=== PATIENT | male | born 1990 | race Native Hawaiian/Other Pacific Islander ===

== ENCOUNTER 2017-01-12 14:24 | Outpatient (CLI) | payer OTHER | END 2017-01-12 14:35 | disposition short-term general hospital (02) | LOC: AMB 14:24 | DX: S43.085A Other dislocation of left shoulder joint, initial encounter (principal) | CPT/HCPCS: A0425; A0429 ==

== ENCOUNTER 2018-01-02 12:52 | Emergency (ER) | payer OTHER ==
[~2018-01-02] VITALS: Ht 170.2 cm; Wt 65.8 kg
[2018-01-02 13:44] LABS: PLATELET COUNT 328 K/uL (142-355)
[2018-01-02 13:49] LABS: POTASSIUM 4.5 mmol/L (3.6-5.2)
[2018-01-02 15:00] VITALS: BP 102/61; TEMP 98
== END 2018-01-02 15:00 | disposition home or self-care (01) ==
LOC: ED 12:52
PROVIDERS: Family Medicine
DX: F19.20 Other psychoactive substance dependence, uncomplicated (principal)
CPT/HCPCS: 36415; 80053; 80307; 80320; 80329; 81000; 85027; 93005; 99283

== ENCOUNTER 2018-04-05 19:46 | Emergency (ER) | payer OTHER ==
[~2018-04-05] VITALS: Ht 170.2 cm; Wt 72.6 kg
[2018-04-05 21:18] VITALS: BP 130/72; TEMP 99.4
== END 2018-04-05 21:18 | disposition home or self-care (01) ==
LOC: ED 19:46
DX: M54.5 Low back pain (principal); M47.896 Other spondylosis, lumbar region; W18.39XA Other fall on same level, initial encounter; Y92.89 Other specified places as the place of occurrence of the external cause
CPT/HCPCS: 96372; 99283; J1885

== ENCOUNTER 2018-07-21 11:47 | Emergency (ER) | payer OTHER ==
[~2018-07-21] VITALS: Ht 170.2 cm; Wt 72.6 kg
[2018-07-21 11:50] VITALS: BP 122/76; TEMP 98
== END 2018-07-21 15:30 | disposition home or self-care (01) ==
LOC: ED 11:47
DX: K02.9 Dental caries, unspecified (principal)
CPT/HCPCS: 96372; 99283; J0696; J2175

== ENCOUNTER 2019-03-12 07:30 | Outpatient (CLI) | payer OTHER ==
[2019-03-12 08:14] LABS: PLATELET COUNT 314 K/uL (142-355)
[2019-03-12 09:16] LABS: POTASSIUM 4.1 mmol/L (3.6-5.2)
== END 2019-03-12 22:24 | disposition home or self-care (01) ==
LOC: RAD 07:30
PROVIDERS: Family Medicine
DX: Z72.0 Tobacco use (principal); R53.81 Other malaise; R50.9 Fever, unspecified; F10.10 Alcohol abuse, uncomplicated; R63.0 Anorexia
CPT/HCPCS: 36415; 80053; 81000; 83735; 84439; 84443; 85027

== ENCOUNTER 2019-04-17 05:21 | Emergency (ER) | payer OTHER ==
[~2019-04-17] VITALS: Ht 170.2 cm; Wt 68.0 kg
[2019-04-17 06:25] VITALS: BP 128/88; TEMP 98.2
== END 2019-04-17 06:25 | disposition home or self-care (01) ==
LOC: ED 05:21
DX: K08.89 Other specified disorders of teeth and supporting structures (principal); K02.9 Dental caries, unspecified; F17.210 Nicotine dependence, cigarettes, uncomplicated
CPT/HCPCS: 96372; 99283; J0696; J1885

== ENCOUNTER 2019-09-18 14:24 | Outpatient (CLI) | payer OTHER | END 2019-09-18 14:35 | disposition short-term general hospital (02) | LOC: AMB 14:24 | DX: T50.5X2A Poisoning by appetite depressants, intentional self-harm, initial encounter (principal); T42.6X2A Poisoning by other antiepileptic and sedative-hypnotic drugs, intentional self-harm, initial encounter; R00.0 Tachycardia, unspecified; F32.89 Other specified depressive episodes | CPT/HCPCS: A0425; A0427 ==

== ENCOUNTER 2019-09-18 14:38 | Emergency (ER) | payer OTHER ==
[~2019-09-18] VITALS: Ht 170.2 cm; Wt 68.0 kg
[2019-09-18 15:18] LABS: PLATELET COUNT 325 K/uL (142-355)
[2019-09-18 15:26] LABS: POTASSIUM 3.7 mmol/L (3.6-5.2)
[2019-09-19 17:00] VITALS: TEMP 97.7
[2019-09-19 18:20] VITALS: BP 110/71
== END 2019-09-19 18:20 | disposition other institution (70) ==
LOC: ED 14:41
PROVIDERS: Emergency Medicine
DX: F32.89 Other specified depressive episodes (principal); T50.5X2A Poisoning by appetite depressants, intentional self-harm, initial encounter; T42.6X2A Poisoning by other antiepileptic and sedative-hypnotic drugs, intentional self-harm, initial encounter; R00.0 Tachycardia, unspecified
CPT/HCPCS: 36415; 80053; 80076; 80307; 80320; 80329; 81000; 85027; 85610; 93005; 96365; 96366; 96375; 99285; J0132; J1885; J2405

== ENCOUNTER 2019-11-09 19:04 | Emergency (ER) | payer OTHER ==
[~2019-11-09] VITALS: Ht 170.2 cm; Wt 68.0 kg
[2019-11-09 19:54] VITALS: BP 132/64; TEMP 97.7
== END 2019-11-09 19:54 | disposition home or self-care (01) ==
LOC: ED 19:04
DX: K08.89 Other specified disorders of teeth and supporting structures (principal)
CPT/HCPCS: 96372; 99283; J0696; J1885

== ENCOUNTER 2019-12-05 18:11 | Emergency (ER) | payer OTHER ==
[~2019-12-05] VITALS: Ht 170.2 cm; Wt 68.0 kg
[2019-12-05 18:11] VITALS: TEMP 97.7
[2019-12-05 19:05] VITALS: BP 124/87
== END 2019-12-05 19:05 | disposition home or self-care (01) ==
LOC: ED 18:11
DX: S43.085A Other dislocation of left shoulder joint, initial encounter (principal); X50.0XXA Overexertion from strenuous movement or load, initial encounter; Y92.89 Other specified places as the place of occurrence of the external cause
CPT/HCPCS: 99282

== ENCOUNTER 2020-01-02 12:49 | Outpatient (CLI) | payer OTHER | END 2020-01-02 19:03 | disposition home or self-care (01) | LOC: RAD 12:49 | DX: R19.7 Diarrhea, unspecified (principal); R11.10 Vomiting, unspecified; R05 Cough; M25.512 Pain in left shoulder; M24.419 Recurrent dislocation, unspecified shoulder ==

== ENCOUNTER 2021-03-05 10:32 | Emergency (ER) | payer OTHER ==
[~2021-03-05] VITALS: Ht 170.2 cm; Wt 74.8 kg
[2021-03-05 10:39] VITALS: BP 123/76; TEMP 98.2
== END 2021-03-05 11:38 | disposition home or self-care (01) ==
LOC: ED 10:32
DX: R11.2 Nausea with vomiting, unspecified (principal); T67.8XXA Other effects of heat and light, initial encounter; L08.89 Other specified local infections of the skin and subcutaneous tissue; X30.XXXA Exposure to excessive natural heat, initial encounter; Y92.89 Other specified places as the place of occurrence of the external cause
CPT/HCPCS: 99282

== ENCOUNTER 2021-05-11 11:31 | Emergency (ER) | payer OTHER ==
[~2021-05-11] VITALS: Ht 170.2 cm; Wt 74.8 kg
[2021-05-11 11:39] VITALS: BP 112/75; TEMP 98.1
== END 2021-05-11 12:40 | disposition home or self-care (01) ==
LOC: ED 11:31
DX: A08.39 Other viral enteritis (principal)
CPT/HCPCS: 99281

== ENCOUNTER 2021-09-09 12:43 | Emergency (ER) | payer OTHER ==
[~2021-09-09] VITALS: Ht 170.2 cm; Wt 63.5 kg
[2021-09-09 13:13] VITALS: BP 106/70; TEMP 98.7
== END 2021-09-09 17:18 | disposition home or self-care (01) ==
LOC: ED 12:43
DX: H10.13 Acute atopic conjunctivitis, bilateral (principal)
CPT/HCPCS: 99282; J1200